=== PATIENT | female | born 1970 | race Two or more races ===

== ENCOUNTER 2021-10-12 12:04 | Emergency (ER) | payer MEDICAID ==
[~2021-10-12] VITALS: Ht 167.6 cm; Wt 72.6 kg
--- NOTE | 2021-10-12 12:15 | NUR ---
FYI: Attempted to do an EKG. Emergency room is out of EKG leads. Called Resp. dept and they stated they are out as well. Called central supply dept who stated they are currently out of EKG leads at this facility and they will attempt to borrow some from another facility. Nursing shuttle fitting supervisor and ERMD notified.
[2021-10-12 12:44] LABS: HEMATOCRIT 41.1 % (31.2-41.9); MEAN CORPUSCULAR HEMOGLOBIN 29.4 uug (24.7-32.8); MEAN CORPUSCULAR VOLUME 85.7 fL (75.5-95.3); PLATELET COUNT (AUTO) 427 K/uL (179-408)
[2021-10-12 12:55] LABS: CARBON DIOXIDE 28 mmol/L (21-32); CHLORIDE 101 mmol/L (98-107); GLUCOSE 124 mg/dL (74-106); POTASSIUM 3.9 mmol/L (3.5-5.1); UREA NITROGEN, BLOOD 12 mg/dL (7-18)
[2021-10-12 13:00] LABS: ALANINE AMINOTRANSFERASE 36 U/L (14-59); ALKALINE PHOSPHATASE 111 U/L (50-136); ASPARTATE AMINOTRANSFERASE 24 U/L (15-37); BILIRUBIN,TOTAL 0.4 mg/dL (0.2-1.0); TOTAL PROTEIN, SERUM 9.3 g/dL (6.4-8.2)
[2021-10-12 13:37] LABS: BILIRUBIN,DIRECT < 0.1 mg/dL (0.0-0.2)
[2021-10-12] MEDS ORDERED: SWABABLE VALVE TRANSFER SET EA MC ONE (13:42)
[2021-10-12] MEDS ORDERED: IV NORMAL SALINE 250 ML IV ONE (13:42)
[2021-10-12] MEDS ORDERED: IOHEXOL 350 100 ML INFUS..BTL ONE (13:42)
[2021-10-12] MEDS ORDERED: APIX5TAB4 PO (15:32)
[2021-10-12 15:40] VITALS: BP 121/71
--- NOTE | 2021-10-12 15:40 | NUR ---
Patient does not wish to proceed with medical care recommended by Dr. HAMILTON. Patient given information related to possible complications, up to and including , which could occur as a result of leaving the hospital at this time. Patient verbalizes understanding of risks involved due to leaving against medical advice. Patient has signed AMA form.
== END 2021-10-12 15:40 | disposition left against medical advice (07) ==
LOC: ER 12:04
DX: U07.1 COVID-19 (principal); J12.82 Pneumonia due to coronavirus disease 2019; F17.210 Nicotine dependence, cigarettes, uncomplicated; Z85.3 Personal history of malignant neoplasm of breast; Z59.01 Sheltered homelessness; R94.31 Abnormal electrocardiogram [ECG] [EKG]; R79.1 Abnormal coagulation profile; R07.2 Precordial pain; Z53.29 Procedure and treatment not carried out because of patient's decision for other reasons
CPT/HCPCS: 36415; 71045; 80048; 80076; 84484; 85025; 85379; 93005; 99285; 99406; Q9967; 70030-TC; A4663; J7050